=== PATIENT | male | born 1990 | race Caucasian/White ===

== ENCOUNTER 2022-10-17 08:20 | Emergency (ER) | payer BC ==
[2022-10-17] MEDS: Lactated Ringers 1,000 ML IV SCH ×2 (09:05→10:31)
[2022-10-17 09:13] LABS: HEMOGLOBIN A1C 6.4 %
[2022-10-17] MEDS ORDERED: Acetaminophen/oxyCODONE 325-5 MG Tab PO ONE (09:31)
[2022-10-17] MEDS ORDERED: LORazepam 2 MG/ML SDV IVPUSH ONE (10:21)
[2022-10-17] MEDS ORDERED: Dexamethasone 4 MG/ML SDV IVPUSH ONE (10:24)
[2022-10-17] MEDS ORDERED: Lactated Ringers 1,000 ML IV SCH (10:30)
[2022-10-17] MEDS ORDERED: Dextrose 5%-Lactated Ringers 1,000 ML IV SCH (10:30)
== END 2022-10-17 13:01 | disposition home or self-care (01) ==
LOC: JD.ED 08:20
DX: U07.1 COVID-19 (principal); E11.9 Type 2 diabetes mellitus without complications; I10 Essential (primary) hypertension; J45.909 Unspecified asthma, uncomplicated
CPT/HCPCS: 36415; 71045; 80053; 82009; 83036; 83735; 85025; 86140; 96361; 96374; 96375; 99283; A9270; J1100; J2060; J7120

== ENCOUNTER 2022-12-30 09:31 | Emergency (ER) | payer BC ==
[2022-12-30] MEDS ORDERED: Iopamidol 755 Mg/ML 100 ML Bottle IVPUSH ONE (10:10)
[2022-12-30] MEDS ORDERED: Sodium Chloride 0.9% 10 ML Syringe FLUSH ONE (10:10)
[2022-12-30] MEDS ORDERED: Sodium Chloride 0.9% 100 ML IV SCH (10:15)
[2022-12-30 11:49] LABS: CORONAVIRUS COVID-19 NAA NEGATIVE (NEGATIVE)
== END 2022-12-30 12:05 ==
LOC: JD.ED 09:31
DX: G81.94 Hemiplegia, unspecified affecting left nondominant side (principal); I10 Essential (primary) hypertension; J45.909 Unspecified asthma, uncomplicated; E11.9 Type 2 diabetes mellitus without complications; E66.9 Obesity, unspecified; Z68.43 Body mass index [BMI] 50.0-59.9, adult; Z91.018 Allergy to other foods; Z79.899 Other long term (current) drug therapy; Z79.84 Long term (current) use of oral hypoglycemic drugs; Z20.822 Contact with and (suspected) exposure to COVID-19
CPT/HCPCS: 0241U; 36415; 70450; 70496; 70498; 80053; 82947; 84484; 85025; 85379; 85610; 85730; 93005; 99285; J2997; J3490; Q9967

== ENCOUNTER 2023-04-04 11:59 | Emergency (ER) | payer BC, MEDICAID ==
[2023-04-04] MEDS ORDERED: Ondansetron 4 MG/2 ML SDV IVPUSH ONE (12:31)
[2023-04-04] MEDS ORDERED: Sodium Chloride 0.9% 10 ML Syringe FLUSH PRN (12:31)
[2023-04-04] MEDS ORDERED: Sodium Chloride 0.9% 1,000 ML IV SCH (12:45)
[2023-04-04 12:51] LABS: BASOPHILS ABSOLUTE AUTO 0.04 K/mm3 (0.01-0.08); BASOPHILS PERCENT AUTO 0.6 % (0.1-1.2); EOSINOPHILS PERCENT AUTO 1.5 (0.8-7.0); HEMATOCRIT 43.4 % (40.1-51.0); HEMOGLOBIN 14.4 gm/dl (13.7-17.5); IMMATURE GRAN ABSOLUTE AUTO 0.04 K/mm3 (0.00-0.10); IMMATURE GRAN PERCENT AUTO 0.6 % (<=1.0); LYMPHOCYTES PERCENT AUTO 29.3 % (21.8-53.1); MEAN CORPUSCULAR HEMOGLOBIN 25.9 pg (25.7-32.2); MEAN CORPUSCULAR HGB CONC 33.2 g/dl (32.2-35.5); MEAN CORPUSCULAR VOLUME 78.2 fl (79.0-92.2); MEAN PLATELET VOLUME 10.2 fl (9.4-12.3); MONOCYTES ABSOLUTE AUTO 0.66 K/mm3 (0.30-0.82); MONOCYTES PERCENT AUTO 10.2 % (5.3-12.2); NEUTROPHILS ABSOLUTE AUTO 3.75 K/mm3 (1.78-5.38); NEUTROPHILS PERCENT AUTO 57.8 % (34.0-67.9); PLATELET COUNT,PLT 276 K/mm3 (163-337); RED BLOOD CELL COUNT 5.55 M/mm3 (4.63-6.08); WHITE BLOOD CELL COUNT,WBC 6.49 K/mm3 (4.23-9.07)
[2023-04-04 13:19] LABS: A/G RATIO 1.1 (1-2); ALBUMIN 3.8 g/dl (3.4-5.0); ANION GAP 12.9 (5-15); BILIRUBIN TOTAL 0.6 mg/dL (0.2-1.0); BUN/CREATININE RATIO 15.7 (14-18); CALCIUM 9.6 mg/dL (8.5-10.1); CREATININE 0.7 mg/dL (0.7-1.3); EST CRCL DRUG DOSING (CG) 158.37 mL/min; MAGNESIUM 1.6 mg/dL (1.8-2.4); PHOSPHORUS 4.6 mg/dL (2.6-4.7); POTASSIUM,K 3.9 mEq/L (3.5-5.1); PROTEIN TOTAL,TP 7.3 g/dl (6.4-8.2)
[2023-04-04 13:29] LABS: HEMOGLOBIN A1C 12.2 %
[2023-04-04] MEDS ORDERED: Sodium Chloride 0.9% 1,000 ML IV ONE ×2 (14:17→16:00)
[2023-04-04] MEDS ORDERED: Ondansetron 4 MG/2 ML SDV ONE (14:42)
[2023-04-04 16:27] LABS: APPEARANCE,URINE CLEAR (Clear); BILIRUBIN,URINE NEGATIVE (Negative); COLOR,URINE YELLOW (Yellow); GLUCOSE,URINE 2+ (Negative); KETONES,URINE 3+ (Negative); LEUKOCYTE ESTERASE,URINE NEGATIVE (Negative); NITRITE,URINE POSITIVE (Negative); OCCULT BLOOD,URINE NEGATIVE (Negative); PH,URINE 5.5 (5.0-8.0); PROTEIN,URINE TRACE (Negative); UROBILINOGEN,URINE 0.2 (0.2-1.0)
[2023-04-04 16:38] LABS: RBC,URINE 0-5 /hpf (0-5); SQUAMOUS EPITHELIAL CELLS,UR 0-5 /hpf (0-5); WBC,URINE 0-5 /hpf (0-5)
[2023-04-04 16:39] LABS: BACTERIA,URINE MANY /hpf (FEW); MUCUS,URINE NOT SEEN /hpf (FEW)
[2023-04-04] MEDS ORDERED: cefTRIAXone 2 GM in Sodium Chloride 0.9% 100 ML IV ONE (17:33)
== END 2023-04-04 18:49 | disposition home or self-care (01) ==
LOC: JD.ED 11:59
DX: E11.65 Type 2 diabetes mellitus with hyperglycemia (principal); N30.00 Acute cystitis without hematuria; E78.00 Pure hypercholesterolemia, unspecified; I10 Essential (primary) hypertension; J45.909 Unspecified asthma, uncomplicated; E66.9 Obesity, unspecified; Z68.43 Body mass index [BMI] 50.0-59.9, adult; Z86.16 Personal history of COVID-19; Z91.018 Allergy to other foods; Z79.84 Long term (current) use of oral hypoglycemic drugs; Z79.899 Other long term (current) drug therapy
CPT/HCPCS: 36415; 80053; 81001; 82009; 82800; 82947; 83036; 83735; 84100; 85025; 87086; 87088; 87186; 96361; 96374; 96375; 99283; J0696; J2405; J3490; J7030; 99284

== ENCOUNTER 2023-05-18 14:24 | Emergency (ER) | payer BC, MEDICAID ==
[2023-05-18] MEDS ORDERED: Ketorolac 60 MG/2 ML SDV IM ONE (16:13)
[2023-05-18] MEDS ORDERED: Metoclopramide 10 MG/2 ML SDV IM ONE (16:13)
[2023-05-18] MEDS ORDERED: diphenhydrAMINE 50 MG/ML SDV IM ONE (16:13)
== END 2023-05-18 17:54 | disposition home or self-care (01) ==
LOC: JD.ED 14:24
DX: G93.0 Cerebral cysts (principal); J45.909 Unspecified asthma, uncomplicated; E78.00 Pure hypercholesterolemia, unspecified; I10 Essential (primary) hypertension; E11.9 Type 2 diabetes mellitus without complications; E66.9 Obesity, unspecified; Z91.018 Allergy to other foods; Z79.899 Other long term (current) drug therapy; Z79.84 Long term (current) use of oral hypoglycemic drugs
CPT/HCPCS: 70450; 96372; 99284; J1200; J1885; J2765; 99283

== ENCOUNTER 2024-02-23 07:13 | Inpatient (IN) | payer MEDICAID ==
[2024-02-23 08:22] LABS: BASOPHILS ABSOLUTE AUTO 0.1 K/mm3 (0.0-0.2); BASOPHILS PERCENT AUTO 0.8 % (0.0-1.0); EOSINOPHILS ABSOLUTE AUTO 0.1 K/mm3 (0.0-0.4); EOSINOPHILS PERCENT AUTO 0.9 % (0.0-6.0); HEMATOCRIT 44.2 % (42.0-52.0); HEMOGLOBIN 14.7 gm/dl (14.0-18.0); IMMATURE GRAN ABSOLUTE AUTO 0.12 K/mm3 (0.00-0.05); IMMATURE GRAN PERCENT AUTO 1.1 % (0.0-0.4); LYMPHOCYTES ABSOLUTE AUTO 2.2 K/mm3 (1.0-4.8); LYMPHOCYTES PERCENT AUTO 19.2 % (24.0-44.0); MEAN CORPUSCULAR HEMOGLOBIN 25.9 pg (28.0-32.0); MEAN CORPUSCULAR HGB CONC 33.3 g/dl (32.0-36.0); MEAN PLATELET VOLUME 9.7 fl (9.4-12.4); MONOCYTES ABSOLUTE AUTO 0.9 K/mm3 (0.0-0.8); MONOCYTES PERCENT AUTO 7.8 % (0.0-8.0); NEUTROPHILS PERCENT AUTO 70.2 % (41.0-71.0); PLATELET COUNT,PLT 309 K/mm3 (150-400); RED BLOOD CELL COUNT 5.67 M/mm3 (4.52-5.90); WHITE BLOOD CELL COUNT,WBC 11.34 K/mm3 (3.9-11.3)
[2024-02-23] MEDS ORDERED: Insulin Regular, Human 100 Units/ML 3 ML Vial IV ONE (08:27)
[2024-02-23] MEDS: cefTRIAXone 1 GM in Sodium Chloride 0.9% 100 ML IV ONE (08:38)
[2024-02-23] MEDS: Sodium Chloride 0.9% 1,000 ML IV ONE ×2 (08:38→14:21)
[2024-02-23] MEDS: Insulin Regular, Human 100 Units/ML 3 ML Vial IVPUSH ONE (08:40)
[2024-02-23 08:44] LABS: PROTHROMBIN TIME 9.9 SECONDS (9.7-12.0)
[2024-02-23 08:45] LABS: INR < 0.93
[2024-02-23 08:45] LABS: CORONAVIRUS COVID-19 NAA NEGATIVE (NEGATIVE); INFLUENZA A NAA NEGATIVE (NEGATIVE); RESPIRATORY SYNCYTIAL VIR NAA NEGATIVE (NEGATIVE)
[2024-02-23 08:54] LABS: ALBUMIN 3.8 g/dl (3.4-5.0); ANION GAP 12.1 (5-15); BILIRUBIN TOTAL 0.7 mg/dL (0.2-1.0); C-REACTIVE PROTEIN 2.78 mg/dL (<0.30); CALCIUM 9.4 mg/dL (8.5-10.1); CREATININE 0.9 mg/dL (0.7-1.3); EST CRCL DRUG DOSING (CG) 122.01 mL/min; POTASSIUM,K 4.1 mEq/L (3.5-5.1); PROTEIN TOTAL,TP 7.7 g/dl (6.4-8.2)
[2024-02-23 08:57] LABS: LACTIC ACID 1.6 mmol/L (0.4-2.0)
[2024-02-23] MEDS ORDERED: VANCOmycin 1.5 GM/300 ML 1.5 GM in Premix Bag 1 BAG IV ONE (10:06)
[2024-02-23] MEDS ORDERED: Sodium Chloride 0.9% 1,000 ML IV ONE (10:11)
[2024-02-23] MEDS: Iopamidol 755 Mg/ML 100 ML Bottle IVPUSH ONE (10:24)
[2024-02-23] MEDS: Sodium Chloride 0.9% 10 ML Syringe FLUSH ONE (10:24)
[2024-02-23] MEDS ORDERED: Albuterol 6.7 GM Inhaler INH PRN (12:32)
[2024-02-23] MEDS ORDERED: Albuterol 0.083% 2.5 MG/3 ML Neb Soln NEB PRN (12:32)
[2024-02-23] MEDS ORDERED: Docusate Sodium 100 MG Cap PO PRN (12:32)
[2024-02-23] MEDS ORDERED: Ondansetron 4 MG Tab.DIS PO PRN (12:32)
[2024-02-23] MEDS ORDERED: Ondansetron 4 MG/2 ML SDV IV PRN (12:32)
[2024-02-23 13:10] LABS: HEMOGLOBIN A1C 12.9 %
[2024-02-23] MEDS: VANCOmycin 1.5 GM/300 ML 1.5 GM in Premix Bag 1 BAG IV ONE (14:21)
[2024-02-23] MEDS: Enoxaparin 40 MG/0.4 ML Syringe SUBCUT SCH (14:22)
[2024-02-23] MEDS: Insulin Glargine,Human Rec. Analog 100 Units/ML 3 ML Pen SUBCUT ONE (15:17)
[2024-02-23] MEDS: Insulin Lispro 100 Unit/ML 3 ML KwikPen SUBCUT SCH (18:04)
[2024-02-23] MEDS: Benzocaine/Cetylpyridinium/Menthol Lozenge MUCMEM PRN (18:04)
[2024-02-23] MEDS: oxyCODONE 5 MG Tab PO PRN (21:13)
[2024-02-23] MEDS: Metoprolol Succinate 25 MG Tab.ER PO SCH (21:15)
[2024-02-23] MEDS: Topiramate 25 MG Tab PO SCH (21:15)
[2024-02-24] MEDS: VANCOmycin 1.5 GM/300 ML 1.5 GM in Premix Bag 1 BAG IV SCH (02:31)
[2024-02-24] MEDS: Acetaminophen 325 MG Tab PO PRN (02:35)
[2024-02-24 05:51] LABS: A/G RATIO 0.9 (1-2); ALBUMIN 3.2 g/dl (3.4-5.0); ANION GAP 9.6 (5-15); BILIRUBIN TOTAL 0.7 mg/dL (0.2-1.0); BUN/CREATININE RATIO 4.3 (14-18); C-REACTIVE PROTEIN 2.97 mg/dL (<0.30); CALCIUM 8.8 mg/dL (8.5-10.1); CREATININE 0.7 mg/dL (0.7-1.3); EST CRCL DRUG DOSING (CG) 156.88 mL/min; MAGNESIUM 1.7 mg/dL (1.8-2.4); POTASSIUM,K 3.6 mEq/L (3.5-5.1); PROTEIN TOTAL,TP 6.7 g/dl (6.4-8.2)
[2024-02-24 05:56] LABS: BASOPHILS ABSOLUTE AUTO 0.1 K/mm3 (0.0-0.2); BASOPHILS PERCENT AUTO 0.9 % (0.0-1.0); EOSINOPHILS ABSOLUTE AUTO 0.2 K/mm3 (0.0-0.4); EOSINOPHILS PERCENT AUTO 2.6 % (0.0-6.0); HEMATOCRIT 41.7 % (42.0-52.0); HEMOGLOBIN 13.7 gm/dl (14.0-18.0); IMMATURE GRAN ABSOLUTE AUTO 0.08 K/mm3 (0.00-0.05); IMMATURE GRAN PERCENT AUTO 1.1 % (0.0-0.4); LYMPHOCYTES ABSOLUTE AUTO 2.4 K/mm3 (1.0-4.8); LYMPHOCYTES PERCENT AUTO 34.3 % (24.0-44.0); MEAN CORPUSCULAR HEMOGLOBIN 25.7 pg (28.0-32.0); MEAN CORPUSCULAR HGB CONC 32.9 g/dl (32.0-36.0); MEAN CORPUSCULAR VOLUME 78.1 fl (83.0-99.0); MEAN PLATELET VOLUME 10.1 fl (9.4-12.4); MONOCYTES ABSOLUTE AUTO 0.6 K/mm3 (0.0-0.8); MONOCYTES PERCENT AUTO 8.4 % (0.0-8.0); NEUTROPHILS ABSOLUTE AUTO 3.7 K/mm3 (1.8-7.7); NEUTROPHILS PERCENT AUTO 52.7 % (41.0-71.0); PLATELET COUNT,PLT 276 K/mm3 (150-400); RED BLOOD CELL COUNT 5.34 M/mm3 (4.52-5.90); WHITE BLOOD CELL COUNT,WBC 7.03 K/mm3 (3.9-11.3)
[2024-02-24] MEDS: Insulin Glargine,Human Rec. Analog 100 Units/ML 3 ML Pen SUBCUT SCH (08:04)
[2024-02-24] MEDS: cefTRIAXone 2 GM in Sodium Chloride 0.9% 100 ML IV SCH (08:05)
[2024-02-24] MEDS ORDERED: Benztropine 1 MG Tab PO SCH (09:00)
[2024-02-24] MEDS ORDERED: Lisinopril 10 MG Tab PO SCH (09:00)
[2024-02-24] MEDS ORDERED: Insulin Glargine,Human Rec. Analog 100 Units/ML 3 ML Pen SUBCUT SCH (09:00)
[2024-02-24] MEDS ORDERED: Rosuvastatin 10 MG Tab PO SCH (09:00)
[2024-02-24] MEDS: Magnesium Sulfate/Water 2 GM in Premix Bag 1 BAG IV ONE (09:16)
[2024-02-24] MEDS ORDERED: Acetaminophen/Butalbital/Caffeine 325-50-40 MG Tab PO PRN (12:05)
[2024-02-24] MEDS: VANCOmycin 1.75 GM/350 ML 1.75 GM in Premix Bag 1 BAG IV SCH (12:32)
[2024-02-24] MEDS: Lisinopril 10 MG Tab PO SCH (12:35)
[2024-02-24] MEDS: Topiramate 25 MG Tab PO SCH (12:35)
[2024-02-24] MEDS: Rosuvastatin 10 MG Tab PO SCH (12:36)
[2024-02-24] MEDS: Metoprolol Tartrate 25 MG Tab PO SCH (12:36)
[2024-02-24] MEDS: Acetaminophen/Butalbital/Caffeine 325-50-40 MG Tab PO ONE (12:38)
[2024-02-24] MEDS: ARIPiprazole 10 MG Tab PO SCH (12:38)
[2024-02-24] MEDS: Benztropine 1 MG Tab PO SCH (12:39)
[2024-02-24] MEDS: Formoterol/Mometasone 100-5 MCG 8.8 GM Inhaler IH SCH (13:17)
[2024-02-24] MEDS: Insulin Glargine,Human Rec. Analog 100 Units/ML 3 ML Pen SUBCUT ONE (20:31)
[2024-02-24] MEDS ORDERED: FLUTICASONE PROPION INH SCH (21:00)
[2024-02-24] MEDS ORDERED: SALMETEROL INH SCH (21:00)
[2024-02-24] MEDS ORDERED: [UNRECOGNIZED DRUG - OTHER] INH SCH (21:00)
[2024-02-24] MEDS ORDERED: Metoprolol Tartrate 25 MG Tab PO SCH (21:00)
[2024-02-24] MEDS ORDERED: Topiramate 25 MG Tab PO SCH (21:00)
[2024-02-25 05:40] LABS: A/G RATIO 0.9 (1-2); ALBUMIN 3.1 g/dl (3.4-5.0); ANION GAP 11.6 (5-15); BILIRUBIN TOTAL 0.5 mg/dL (0.2-1.0); BUN/CREATININE RATIO 7.1 (14-18); C-REACTIVE PROTEIN 1.81 mg/dL (<0.30); CALCIUM 8.8 mg/dL (8.5-10.1); CREATININE 0.7 mg/dL (0.7-1.3); EST CRCL DRUG DOSING (CG) 156.88 mL/min; MAGNESIUM 2.1 mg/dL (1.8-2.4); POTASSIUM,K 3.6 mEq/L (3.5-5.1); PROTEIN TOTAL,TP 6.6 g/dl (6.4-8.2)
[2024-02-25 06:04] LABS: BASOPHILS ABSOLUTE AUTO 0.1 K/mm3 (0.0-0.2); BASOPHILS PERCENT AUTO 1.3 % (0.0-1.0); EOSINOPHILS ABSOLUTE AUTO 0.2 K/mm3 (0.0-0.4); EOSINOPHILS PERCENT AUTO 2.7 % (0.0-6.0); HEMATOCRIT 41.8 % (42.0-52.0); HEMOGLOBIN 13.7 gm/dl (14.0-18.0); IMMATURE GRAN ABSOLUTE AUTO 0.11 K/mm3 (0.00-0.05); IMMATURE GRAN PERCENT AUTO 1.4 % (0.0-0.4); LYMPHOCYTES ABSOLUTE AUTO 2.3 K/mm3 (1.0-4.8); LYMPHOCYTES PERCENT AUTO 29.7 % (24.0-44.0); MEAN CORPUSCULAR HEMOGLOBIN 25.5 pg (28.0-32.0); MEAN CORPUSCULAR HGB CONC 32.8 g/dl (32.0-36.0); MEAN CORPUSCULAR VOLUME 77.7 fl (83.0-99.0); MEAN PLATELET VOLUME 10.1 fl (9.4-12.4); MONOCYTES ABSOLUTE AUTO 0.7 K/mm3 (0.0-0.8); MONOCYTES PERCENT AUTO 8.7 % (0.0-8.0); NEUTROPHILS ABSOLUTE AUTO 4.4 K/mm3 (1.8-7.7); NEUTROPHILS PERCENT AUTO 56.2 % (41.0-71.0); PLATELET COUNT,PLT 290 K/mm3 (150-400); RED BLOOD CELL COUNT 5.38 M/mm3 (4.52-5.90); WHITE BLOOD CELL COUNT,WBC 7.78 K/mm3 (3.9-11.3)
[2024-02-25] MEDS: Insulin Glargine,Human Rec. Analog 100 Units/ML 3 ML Pen SUBCUT SCH (08:12)
[2024-02-25] MEDS ORDERED: Lisinopril 10 MG Tab PO SCH (09:00)
[2024-02-25] MEDS ORDERED: Rosuvastatin 10 MG Tab PO SCH (09:00)
[2024-02-25] MEDS ORDERED: Benztropine 1 MG Tab PO SCH (09:00)
[2024-02-25] MEDS ORDERED: [UNRECOGNIZED DRUG - OTHER] TOP SCH (11:30)
[2024-02-25] MEDS ORDERED: Insulin Glargine,Human Rec. Analog 100 Units/ML 3 ML Pen SUBCUT ONE (18:20)
== END 2024-02-25 15:30 | disposition home or self-care (01) | DRG 603 ==
LOC: JD.ED 07:13 → JD.MS 11:46
PROVIDERS: ADMIT Internal Medicine; ATTEND Internal Medicine
DX: L02.31 Cutaneous abscess of buttock (principal); L02.11 Cutaneous abscess of neck; Z68.42 Body mass index [BMI] 45.0-49.9, adult; L02.01 Cutaneous abscess of face; L03.221 Cellulitis of neck; L03.211 Cellulitis of face; L03.317 Cellulitis of buttock; E11.620 Type 2 diabetes mellitus with diabetic dermatitis; H54.7 Unspecified visual loss; E78.00 Pure hypercholesterolemia, unspecified; I10 Essential (primary) hypertension; G43.909 Migraine, unspecified, not intractable, without status migrainosus; F41.9 Anxiety disorder, unspecified; F43.10 Post-traumatic stress disorder, unspecified; N49.9 Inflammatory disorder of unspecified male genital organ; L98.499 Non-pressure chronic ulcer of skin of other sites with unspecified severity; E66.01 Morbid (severe) obesity due to excess calories; F20.9 Schizophrenia, unspecified; E78.5 Hyperlipidemia, unspecified; F32.89 Other specified depressive episodes; R26.2 Difficulty in walking, not elsewhere classified; E11.65 Type 2 diabetes mellitus with hyperglycemia; B95.0 Streptococcus, group A, as the cause of diseases classified elsewhere; J02.9 Acute pharyngitis, unspecified; J45.20 Mild intermittent asthma, uncomplicated; L21.9 Seborrheic dermatitis, unspecified; E83.42 Hypomagnesemia; Z91.018 Allergy to other foods; Z79.84 Long term (current) use of oral hypoglycemic drugs; Z79.899 Other long term (current) drug therapy; Z87.81 Personal history of (healed) traumatic fracture; Z87.440 Personal history of urinary (tract) infections; Z86.16 Personal history of COVID-19; Z90.49 Acquired absence of other specified parts of digestive tract
CPT/HCPCS: 0241U; 36415; 70491; 70491-26; 80053; 80202; 82947; 83036; 83605; 83735; 85025; 85610; 85652; 85730; 86140; 87040; 87070; 87075; 87077; 87186; 87205; 87651-QW; 94640; 94760; 94761; 96361; 96365; 97110-GP; 97161-GP; 97530-GP; 97597-GP; 99223; 99233; 99239; 99285; 99285-25; A9270-GY; J0696; J1650; J1815; J1815-GY; J3370; J3475; J3490; J7030; Q9967

== ENCOUNTER 2024-10-26 22:17 | Emergency (ER) | payer MEDICAID | END 2024-10-27 00:52 | disposition home or self-care (01) | LOC: JD.ED 22:17 | DX: J06.9 Acute upper respiratory infection, unspecified (principal); B34.9 Viral infection, unspecified; I10 Essential (primary) hypertension; E11.9 Type 2 diabetes mellitus without complications; E66.9 Obesity, unspecified; Z86.16 Personal history of COVID-19; Z90.49 Acquired absence of other specified parts of digestive tract; Z91.018 Allergy to other foods; Z68.43 Body mass index [BMI] 50.0-59.9, adult | CPT/HCPCS: 71045; 71045-26; 87428-QW; 99284 ==

== ENCOUNTER 2024-10-31 15:52 | Inpatient (IN) | payer BC, MEDICAID ==
[2024-10-31 18:53] LABS: BASE EXCESS ARTERIAL -6.7 (-2-2.0); BICARBONATE,ARTERIAL 17.1 meq/L (22.0-26.0); O2 SATURATION ARTERIAL 93.8 % (96.0-97.0); PCO2 ARTERIAL 30.6 mmHg (35.0-45.0)
[2024-10-31] MEDS: Albuterol/Ipratropium 3.0-0.5 MG/3 ML Neb Soln NEB ONE (18:57)
[2024-10-31 18:59] LABS: BASOPHILS ABSOLUTE AUTO 0.1 K/mm3 (0.0-0.2); BASOPHILS PERCENT AUTO 0.4 % (0.0-1.0); EOSINOPHILS PERCENT AUTO 0.2 % (0.0-6.0); HEMATOCRIT 41.7 % (42.0-52.0); HEMOGLOBIN 13.5 gm/dl (14.0-18.0); IMMATURE GRAN ABSOLUTE AUTO 0.77 K/mm3 (0.00-0.05); IMMATURE GRAN PERCENT AUTO 4.3 % (0.0-0.4); LYMPHOCYTES ABSOLUTE AUTO 1.7 K/mm3 (1.0-4.8); LYMPHOCYTES PERCENT AUTO 9.4 % (24.0-44.0); MEAN CORPUSCULAR HEMOGLOBIN 25.7 pg (28.0-32.0); MEAN CORPUSCULAR HGB CONC 32.4 g/dl (32.0-36.0); MEAN CORPUSCULAR VOLUME 79.3 fl (83.0-99.0); MEAN PLATELET VOLUME 9.4 fl (9.4-12.4); MONOCYTES ABSOLUTE AUTO 1.5 K/mm3 (0.0-0.8); MONOCYTES PERCENT AUTO 8.2 % (0.0-8.0); NEUTROPHILS PERCENT AUTO 77.5 % (41.0-71.0); PLATELET COUNT,PLT 371 K/mm3 (150-400); RED BLOOD CELL COUNT 5.26 M/mm3 (4.52-5.90)
[2024-10-31] MEDS: Ketorolac 15 MG/ML SDV IVPUSH ONE (18:59)
[2024-10-31] MEDS: Sodium Chloride 0.9% 10 ML Syringe FLUSH PRN (19:00)
[2024-10-31] MEDS: methylPREDNISolone Sodium Succinate 125 MG/2 ML SDV IVPUSH ONE (19:00)
[2024-10-31] MEDS: Iopamidol 612 MG/ML 100 ML Bottle IVPUSH ONE (19:31)
[2024-10-31] MEDS: Iopamidol 755 Mg/ML 100 ML Bottle IVPUSH ONE (19:32)
[2024-10-31] MEDS: Sodium Chloride 0.9% 100 ML IV SCH (19:32)
[2024-10-31 19:34] LABS: LACTIC ACID 1.6 mmol/L (0.4-2.0)
[2024-10-31 19:37] LABS: A/G RATIO 0.5 (1-2); ALBUMIN 2.7 g/dl (3.4-5.0); ANION GAP 18.2 (5-15); BILIRUBIN TOTAL 0.5 mg/dL (0.2-1.0); BUN/CREATININE RATIO 11.1 (14-18); CALCIUM 9.6 mg/dL (8.5-10.1); CREATININE 0.9 mg/dL (0.7-1.3); EST CRCL DRUG DOSING (CG) 109.78 mL/min; POTASSIUM,K 4.2 mEq/L (3.5-5.1); PROTEIN TOTAL,TP 8.1 g/dl (6.4-8.2)
[2024-10-31] MEDS: cefTRIAXone 2 GM Vial IVPUSH ONE (20:18)
[2024-10-31] MEDS: Azithromycin 500 MG in Sodium Chloride 0.9% 250 ML IV ONE (20:36)
[2024-10-31] MEDS: Sodium Chloride 0.9% 1,000 ML IV SCH (20:42)
[2024-10-31] MEDS: guaiFENesin/Dextromethorphan 100-10 MG/5 ML Soln 5 ML Cup PO PRN (22:46)
[2024-10-31] MEDS: Insulin Lispro 100 Unit/ML 3 ML KwikPen SUBCUT SCH (23:30)
[2024-11-01] MEDS: Formoterol/Mometasone 100-5 MCG 8.8 GM Inhaler INH SCH (06:44)
[2024-11-01] MEDS: Albuterol 0.083% 2.5 MG/3 ML Neb Soln NEB PRN (08:00)
[2024-11-01] MEDS: Lisinopril 10 MG Tab PO SCH (08:22)
[2024-11-01] MEDS: Enoxaparin 40 MG/0.4 ML Syringe SUBCUT SCH (08:22)
[2024-11-01] MEDS: Rosuvastatin 10 MG Tab PO SCH (08:23)
[2024-11-01] MEDS: Gabapentin 600 MG Tab PO SCH (08:23)
[2024-11-01] MEDS: Topiramate 25 MG Tab PO SCH (08:31)
[2024-11-01] MEDS: ARIPiprazole 10 MG Tab PO SCH (08:31)
[2024-11-01] MEDS: Metoprolol Tartrate 25 MG Tab PO SCH (08:32)
[2024-11-01] MEDS: Insulin Glargine,Human Rec. Analog 100 Units/ML 3 ML Pen SUBCUT SCH (08:32)
[2024-11-01] MEDS: Albuterol/Ipratropium 3.0-0.5 MG/3 ML Neb Soln NEB SCH ×2 (10:36→14:20)
[2024-11-01] MEDS: Acetaminophen 325 MG Tab PO PRN (12:00)
[2024-11-01 17:51] LABS: APPEARANCE,URINE CLEAR (Clear); BILIRUBIN,URINE 1+ (Negative); COLOR,URINE YELLOW (Yellow); GLUCOSE,URINE 2+ (Negative); KETONES,URINE 4+ (Negative); LEUKOCYTE ESTERASE,URINE NEGATIVE (Negative); NITRITE,URINE NEGATIVE (Negative); OCCULT BLOOD,URINE 1+ (Negative); PROTEIN,URINE 3+ (Negative); UROBILINOGEN,URINE 0.2 (0.2-1.0)
[2024-11-01 18:58] LABS: BACTERIA,URINE FEW /hpf (FEW); HYALINE CASTS,URINE 0-5 /lpf (0-5); MUCUS,URINE MODERATE /hpf (FEW); SQUAMOUS EPITHELIAL CELLS,UR 0-5 /hpf (0-5); WBC,URINE 0-5 /hpf (0-5)
[2024-11-01] MEDS: cefTRIAXone 1 GM Vial IVPUSH SCH (20:27)
[2024-11-01] MEDS: Doxycycline 100 MG in Sodium Chloride 0.9% 100 ML IV SCH (20:27)
[2024-11-01] MEDS ORDERED: Non-Formulary Medication 1 Each (Fluticasone Propion/Salmeterol [Fluticasone-Salmeterol 11 IH SCH (21:00)
[2024-11-02 04:33] LABS: BASOPHILS ABSOLUTE AUTO 0.1 K/mm3 (0.0-0.2); BASOPHILS PERCENT AUTO 0.6 % (0.0-1.0); EOSINOPHILS PERCENT AUTO 0.1 % (0.0-6.0); HEMATOCRIT 40.1 % (42.0-52.0); HEMOGLOBIN 12.6 gm/dl (14.0-18.0); IMMATURE GRAN ABSOLUTE AUTO 1.66 K/mm3 (0.00-0.05); IMMATURE GRAN PERCENT AUTO 8.9 % (0.0-0.4); LYMPHOCYTES ABSOLUTE AUTO 1.7 K/mm3 (1.0-4.8); MEAN CORPUSCULAR HEMOGLOBIN 25.4 pg (28.0-32.0); MEAN CORPUSCULAR HGB CONC 31.4 g/dl (32.0-36.0); MEAN CORPUSCULAR VOLUME 80.7 fl (83.0-99.0); MEAN PLATELET VOLUME 9.1 fl (9.4-12.4); MONOCYTES ABSOLUTE AUTO 1.6 K/mm3 (0.0-0.8); MONOCYTES PERCENT AUTO 8.7 % (0.0-8.0); NEUTROPHILS ABSOLUTE AUTO 13.5 K/mm3 (1.8-7.7); NEUTROPHILS PERCENT AUTO 72.7 % (41.0-71.0); PLATELET COUNT,PLT 403 K/mm3 (150-400); RED BLOOD CELL COUNT 4.97 M/mm3 (4.52-5.90); WHITE BLOOD CELL COUNT,WBC 18.63 K/mm3 (3.9-11.3)
[2024-11-02 05:11] LABS: HEMOGLOBIN A1C 13.1 %
[2024-11-02 05:24] LABS: A/G RATIO 0.4 (1-2); ALBUMIN 2.2 g/dl (3.4-5.0); ANION GAP 19.9 (5-15); BILIRUBIN TOTAL 0.4 mg/dL (0.2-1.0); C-REACTIVE PROTEIN 19.88 mg/dL (<0.30); CALCIUM 8.9 mg/dL (8.5-10.1); CREATININE 0.8 mg/dL (0.7-1.3); EST CRCL DRUG DOSING (CG) 123.5 mL/min; POTASSIUM,K 3.9 mEq/L (3.5-5.1); PROTEIN TOTAL,TP 7.5 g/dl (6.4-8.2)
[2024-11-02 06:08] LABS: SLIDE REVIEW ABNORMAL SMEAR
[2024-11-02] MEDS ORDERED: 50% Dextrose in Water 50 ML Syringe IVPUSH PRN (08:02)
[2024-11-02] MEDS: Acetaminophen 325 MG Tab PO SCH (10:29)
[2024-11-02] MEDS: Lisinopril 10 MG Tab PO ONE (10:30)
[2024-11-02] MEDS: Cyclobenzaprine 10 MG Tab PO ONE (11:20)
[2024-11-02] MEDS: Insulin Lispro 100 Unit/ML 3 ML KwikPen SUBCUT SCH (11:23)
[2024-11-02] MEDS: Cyclobenzaprine 10 MG Tab PO SCH (15:08)
[2024-11-02] MEDS: Diclofenac Sodium 1% Gel 100 GM Tube TOP PRN (15:20)
[2024-11-02] MEDS ORDERED: oxyCODONE 5 MG Tab PO PRN (15:33)
[2024-11-02] MEDS: amLODIPine 5 MG Tab PO SCH (15:50)
[2024-11-02] MEDS: Metoprolol Tartrate 50 MG Tab PO SCH (20:08)
[2024-11-03 04:16] LABS: BASOPHILS PERCENT AUTO 0.1 % (0.0-1.0); EOSINOPHILS PERCENT AUTO 0.2 % (0.0-6.0); HEMATOCRIT 40.3 % (42.0-52.0); HEMOGLOBIN 12.9 gm/dl (14.0-18.0); IMMATURE GRAN ABSOLUTE AUTO 1.78 K/mm3 (0.00-0.05); IMMATURE GRAN PERCENT AUTO 10.5 % (0.0-0.4); LYMPHOCYTES ABSOLUTE AUTO 2.1 K/mm3 (1.0-4.8); LYMPHOCYTES PERCENT AUTO 12.5 % (24.0-44.0); MEAN CORPUSCULAR HEMOGLOBIN 25.5 pg (28.0-32.0); MEAN CORPUSCULAR VOLUME 79.6 fl (83.0-99.0); MEAN PLATELET VOLUME 8.9 fl (9.4-12.4); MONOCYTES ABSOLUTE AUTO 1.7 K/mm3 (0.0-0.8); NEUTROPHILS ABSOLUTE AUTO 11.4 K/mm3 (1.8-7.7); NEUTROPHILS PERCENT AUTO 66.7 % (41.0-71.0); PLATELET COUNT,PLT 388 K/mm3 (150-400); RED BLOOD CELL COUNT 5.06 M/mm3 (4.52-5.90); WHITE BLOOD CELL COUNT,WBC 17.03 K/mm3 (3.9-11.3)
[2024-11-03 04:40] LABS: A/G RATIO 0.4 (1-2); ALBUMIN 2.1 g/dl (3.4-5.0); ANION GAP 17.8 (5-15); BILIRUBIN TOTAL 0.5 mg/dL (0.2-1.0); BUN/CREATININE RATIO 13.8 (14-18); C-REACTIVE PROTEIN 21.08 mg/dL (<0.30); CALCIUM 9.1 mg/dL (8.5-10.1); CREATININE 0.8 mg/dL (0.7-1.3); EST CRCL DRUG DOSING (CG) 123.5 mL/min; POTASSIUM,K 3.8 mEq/L (3.5-5.1); PROTEIN TOTAL,TP 7.6 g/dl (6.4-8.2)
[2024-11-03 04:43] LABS: SLIDE REVIEW ABNORMAL SMEAR
[2024-11-03] MEDS: VANCOmycin 1.75 GM/350 ML 1.75 GM in Premix Bag 1 BAG IV ONE (08:01)
[2024-11-03] MEDS: Lisinopril 20 MG Tab PO SCH (08:10)
[2024-11-03] MEDS: Insulin Glargine,Human Rec. Analog 100 Units/ML 3 ML Pen SUBCUT SCH (08:13)
[2024-11-03] MEDS: VANCOmycin 1.5 GM/300 ML 1.5 GM in Premix Bag 1 BAG IV SCH (16:34)
[2024-11-03] MEDS: Iopamidol 755 Mg/ML 100 ML Bottle IVPUSH ONE (19:50)
[2024-11-03] MEDS: Sodium Chloride 0.9% 100 ML IV SCH (19:51)
[2024-11-03] MEDS: Melatonin 3 MG Tab PO SCH (20:55)
[2024-11-04] MEDS: metroNIDAZOLE/Normal Saline 500 MG in Premix Bag 1 BAG IV SCH (00:01)
[2024-11-04 08:18] LABS: BASOPHILS ABSOLUTE AUTO 0.1 K/mm3 (0.0-0.2); BASOPHILS PERCENT AUTO 0.8 % (0.0-1.0); EOSINOPHILS PERCENT AUTO 0.2 % (0.0-6.0); HEMATOCRIT 37.7 % (42.0-52.0); HEMOGLOBIN 12.2 gm/dl (14.0-18.0); IMMATURE GRAN ABSOLUTE AUTO 1.91 K/mm3 (0.00-0.05); IMMATURE GRAN PERCENT AUTO 10.4 % (0.0-0.4); LYMPHOCYTES ABSOLUTE AUTO 1.9 K/mm3 (1.0-4.8); LYMPHOCYTES PERCENT AUTO 10.3 % (24.0-44.0); MEAN CORPUSCULAR HEMOGLOBIN 25.5 pg (28.0-32.0); MEAN CORPUSCULAR HGB CONC 32.4 g/dl (32.0-36.0); MEAN CORPUSCULAR VOLUME 78.7 fl (83.0-99.0); MONOCYTES ABSOLUTE AUTO 1.7 K/mm3 (0.0-0.8); MONOCYTES PERCENT AUTO 9.4 % (0.0-8.0); NEUTROPHILS ABSOLUTE AUTO 12.6 K/mm3 (1.8-7.7); NEUTROPHILS PERCENT AUTO 68.9 % (41.0-71.0); PLATELET COUNT,PLT 360 K/mm3 (150-400); RED BLOOD CELL COUNT 4.79 M/mm3 (4.52-5.90)
[2024-11-04 08:39] LABS: SLIDE REVIEW ABNORMAL SMEAR
[2024-11-04 08:45] LABS: A/G RATIO 0.4 (1-2); ALBUMIN 1.9 g/dl (3.4-5.0); ANION GAP 16.7 (5-15); BILIRUBIN TOTAL 0.5 mg/dL (0.2-1.0); BUN/CREATININE RATIO 15.7 (14-18); CALCIUM 8.9 mg/dL (8.5-10.1); CREATININE 0.7 mg/dL (0.7-1.3); EST CRCL DRUG DOSING (CG) 141.14 mL/min; POTASSIUM,K 3.7 mEq/L (3.5-5.1); PROTEIN TOTAL,TP 7.2 g/dl (6.4-8.2)
== END 2024-11-04 10:56 | DRG 193 ==
LOC: JD.ED 15:52 → JD.MS 20:17
PROVIDERS: ADMIT Family Medicine; ATTEND Family Medicine
PROC: 4A033R1 Measurement of Arterial Saturation, Peripheral, Percutaneous Approach (ICD-10-PCS; principal; 2024-10-31)
PROC: 3E03329 Introduction of Other Anti-infective into Peripheral Vein, Percutaneous Approach (ICD-10-PCS; principal; 2024-10-31)
DX: J18.9 Pneumonia, unspecified organism (principal); A41.9 Sepsis, unspecified organism; J96.01 Acute respiratory failure with hypoxia; J45.901 Unspecified asthma with (acute) exacerbation; H54.7 Unspecified visual loss; E78.00 Pure hypercholesterolemia, unspecified; I10 Essential (primary) hypertension; G43.909 Migraine, unspecified, not intractable, without status migrainosus; F41.9 Anxiety disorder, unspecified; F32.A Depression, unspecified; F20.9 Schizophrenia, unspecified; E66.9 Obesity, unspecified; D64.9 Anemia, unspecified; E86.0 Dehydration; E11.65 Type 2 diabetes mellitus with hyperglycemia; Z79.899 Other long term (current) drug therapy; Z90.49 Acquired absence of other specified parts of digestive tract; Z79.4 Long term (current) use of insulin; Z86.16 Personal history of COVID-19; Z88.8 Allergy status to other drugs, medicaments and biological substances
CPT/HCPCS: 36415; 36600; 71275; 71275-26; 80053; 80202; 81001; 82550; 82803; 82947; 83036; 83605; 84484; 85025; 85379; 86140; 86738; 87040; 87070; 87077; 87186; 87205; 87428-QW; 87641; 87899; 93005; 93010; 94640; 94667; 94668; 94760; 94761; 96374; 96375; 99285; 99285-25; A9270-GY; J0456; J0696; J1650; J1815; J1815-GY; J1836; J1885; J2919; J3372; J3490; J7030; J7620-GY; Q9967

== ENCOUNTER 2024-11-13 03:25 | Inpatient (IN) | payer BC, MEDICAID ==
[2024-11-13] MEDS ORDERED: Sodium Chloride 0.9% 10 ML Syringe FLUSH PRN (03:52)
[2024-11-13 04:01] LABS: BASOPHILS ABSOLUTE AUTO 0.1 K/mm3 (0.0-0.2); BASOPHILS PERCENT AUTO 0.3 % (0.0-1.0); HEMATOCRIT 38.8 % (42.0-52.0); HEMOGLOBIN 12.2 gm/dl (14.0-18.0); IMMATURE GRAN ABSOLUTE AUTO 0.71 K/mm3 (0.00-0.05); IMMATURE GRAN PERCENT AUTO 2.1 % (0.0-0.4); LYMPHOCYTES ABSOLUTE AUTO 1.6 K/mm3 (1.0-4.8); LYMPHOCYTES PERCENT AUTO 4.6 % (24.0-44.0); MEAN CORPUSCULAR HEMOGLOBIN 25.5 pg (28.0-32.0); MEAN CORPUSCULAR HGB CONC 31.4 g/dl (32.0-36.0); MEAN PLATELET VOLUME 8.6 fl (9.4-12.4); MONOCYTES ABSOLUTE AUTO 2.9 K/mm3 (0.0-0.8); MONOCYTES PERCENT AUTO 8.4 % (0.0-8.0); NEUTROPHILS ABSOLUTE AUTO 28.7 K/mm3 (1.8-7.7); NEUTROPHILS PERCENT AUTO 84.6 % (41.0-71.0); PLATELET COUNT,PLT 528 K/mm3 (150-400); RED BLOOD CELL COUNT 4.79 M/mm3 (4.52-5.90); WHITE BLOOD CELL COUNT,WBC 33.97 K/mm3 (3.9-11.3)
[2024-11-13 04:04] LABS: APPEARANCE,URINE SLT CLOUDY (Clear); BILIRUBIN,URINE 1+ (Negative); COLOR,URINE DARK YELLOW (Yellow); GLUCOSE,URINE TRACE (Negative); KETONES,URINE TRACE (Negative); LEUKOCYTE ESTERASE,URINE NEGATIVE (Negative); NITRITE,URINE NEGATIVE (Negative); OCCULT BLOOD,URINE 2+ (Negative); PROTEIN,URINE 3+ (Negative); UROBILINOGEN,URINE 0.2 (0.2-1.0)
[2024-11-13 04:12] LABS: BICARBONATE,VENOUS 22.4 meq/L (22-26); O2 SATURATION VENOUS 66; PH,VENOUS 7.44 (7.30-7.40)
[2024-11-13 04:13] LABS: BASE EXCESS VENOUS -1.1 (-4.0-2.0)
[2024-11-13 04:22] LABS: BACTERIA,URINE FEW /hpf (FEW); HYALINE CASTS,URINE 0-5 /lpf (0-5); MUCUS,URINE MODERATE /hpf (FEW); WBC,URINE 0-5 /hpf (0-5)
[2024-11-13 04:41] LABS: LACTIC ACID 2.2 mmol/L (0.4-2.0)
[2024-11-13 04:44] LABS: A/G RATIO 0.5 (1-2); ALBUMIN 2.5 g/dl (3.4-5.0); ANION GAP 14.1 (5-15); BILIRUBIN TOTAL 0.9 mg/dL (0.2-1.0); CALCIUM 8.7 mg/dL (8.5-10.1); CREATININE 1.2 mg/dL (0.7-1.3); EST CRCL DRUG DOSING (CG) 82.33 mL/min; MAGNESIUM 1.4 mg/dL (1.8-2.4); POTASSIUM,K 4.1 mEq/L (3.5-5.1)
[2024-11-13] MEDS: Sodium Chloride 0.9% 1,000 ML IV ONE ×3 (04:58→08:31)
[2024-11-13 04:59] LABS: SLIDE REVIEW ABNORMAL SMEAR
[2024-11-13] MEDS: Piperacillin/Tazobactam 4.5 GM in Sodium Chloride 0.9% 100 ML IV ONE (04:59)
[2024-11-13 05:05] LABS: CORONAVIRUS COVID-19 NAA NEGATIVE (NEGATIVE); INFLUENZA A NAA NEGATIVE (NEGATIVE); RESPIRATORY SYNCYTIAL VIR NAA NEGATIVE (NEGATIVE)
[2024-11-13] MEDS: Ketorolac 15 MG/ML SDV IVPUSH ONE ×2 (05:56→22:32)
[2024-11-13] MEDS ORDERED: Sodium Chloride 0.9% 100 ML IV SCH (07:00)
[2024-11-13] MEDS: Iopamidol 755 Mg/ML 100 ML Bottle IVPUSH ONE (07:14)
[2024-11-13] MEDS: VANCOmycin 2 GM/400 ML 2 GM in Premix Bag 1 BAG IV ONE (07:36)
[2024-11-13] MEDS: ARIPiprazole 5 MG Tab PO ONE (12:18)
[2024-11-13] MEDS: metFORMIN 500 MG Tab PO ONE ×2 (12:19→20:50)
[2024-11-13] MEDS: Topiramate 25 MG Tab PO ONE ×2 (12:19→20:50)
[2024-11-13] MEDS: Benztropine 1 MG Tab PO ONE (12:20)
[2024-11-13] MEDS: Gabapentin 600 MG Tab PO ONE ×2 (12:20→20:50)
[2024-11-13] MEDS: Insulin Glargine,Human Rec. Analog 100 Units/ML 3 ML Pen SUBCUT ONE ×2 (12:23→20:51)
[2024-11-13] MEDS: Metoprolol Tartrate 25 MG Tab PO ONE (12:35)
[2024-11-13] MEDS: Fluticasone NASAL Spray 16 GM Bottle NASBOTH ONE (12:35)
[2024-11-13] MEDS: Rosuvastatin 10 MG Tab PO ONE ×2 (12:35→20:50)
[2024-11-13] MEDS: Lisinopril 10 MG Tab PO ONE (12:37)
[2024-11-13] MEDS: Sodium Chloride 0.9% 10 ML Syringe FLUSH ONE (12:37)
[2024-11-13] MEDS: HYDROmorphone 0.5 MG/0.5 ML Syringe IVPUSH ONE (15:24)
[2024-11-13] MEDS: Piperacillin/Tazobactam 4.5 GM in Sodium Chloride 0.9% 100 ML IV SCH (15:27)
[2024-11-13 15:28] LABS: BASOPHILS ABSOLUTE AUTO 0.1 K/mm3 (0.0-0.2); BASOPHILS PERCENT AUTO 0.3 % (0.0-1.0); EOSINOPHILS ABSOLUTE AUTO 0.1 K/mm3 (0.0-0.4); EOSINOPHILS PERCENT AUTO 0.3 % (0.0-6.0); HEMATOCRIT 37.4 % (42.0-52.0); HEMOGLOBIN 11.7 gm/dl (14.0-18.0); IMMATURE GRAN ABSOLUTE AUTO 0.24 K/mm3 (0.00-0.05); LYMPHOCYTES ABSOLUTE AUTO 2.4 K/mm3 (1.0-4.8); LYMPHOCYTES PERCENT AUTO 10.3 % (24.0-44.0); MEAN CORPUSCULAR HEMOGLOBIN 25.5 pg (28.0-32.0); MEAN CORPUSCULAR HGB CONC 31.3 g/dl (32.0-36.0); MEAN CORPUSCULAR VOLUME 81.7 fl (83.0-99.0); MEAN PLATELET VOLUME 8.5 fl (9.4-12.4); MONOCYTES ABSOLUTE AUTO 1.5 K/mm3 (0.0-0.8); MONOCYTES PERCENT AUTO 6.4 % (0.0-8.0); NEUTROPHILS ABSOLUTE AUTO 19.3 K/mm3 (1.8-7.7); NEUTROPHILS PERCENT AUTO 81.7 % (41.0-71.0); PLATELET COUNT,PLT 380 K/mm3 (150-400); RED BLOOD CELL COUNT 4.58 M/mm3 (4.52-5.90); WHITE BLOOD CELL COUNT,WBC 23.58 K/mm3 (3.9-11.3)
[2024-11-13 16:09] LABS: A/G RATIO 0.4 (1-2); ALBUMIN 2.3 g/dl (3.4-5.0); ANION GAP 12.8 (5-15); BILIRUBIN TOTAL 0.6 mg/dL (0.2-1.0); CALCIUM 8.6 mg/dL (8.5-10.1); CREATININE 1.2 mg/dL (0.7-1.3); EST CRCL DRUG DOSING (CG) 82.33 mL/min; POTASSIUM,K 3.8 mEq/L (3.5-5.1)
[2024-11-13] MEDS: VANCOmycin 1.5 GM/300 ML 1.5 GM in Premix Bag 1 BAG IV SCH (17:56)
[2024-11-13] MEDS: Acetaminophen 325 MG Tab PO ONE (20:50)
[2024-11-14] MEDS ORDERED: Acetaminophen 325 MG Tab PO PRN (10:16)
[2024-11-14] MEDS ORDERED: 50% Dextrose in Water 50 ML Syringe IVPUSH PRN (10:20)
[2024-11-14] MEDS ORDERED: ARIPIPRAZOLE 10 MG PO SCH (10:30)
[2024-11-14] MEDS ORDERED: TOPIRAMATE 50 MG PO SCH (10:30)
[2024-11-14] MEDS: Metoprolol Tartrate 25 MG Tab PO SCH (10:57)
[2024-11-14] MEDS: Benztropine 1 MG Tab PO SCH (10:58)
[2024-11-14] MEDS: Topiramate 25 MG Tab PO SCH (10:58)
[2024-11-14] MEDS: Rosuvastatin 10 MG Tab PO SCH (10:58)
[2024-11-14] MEDS: ARIPiprazole 10 MG Tab PO SCH (10:58)
[2024-11-14] MEDS: Insulin Lispro 100 Unit/ML 3 ML KwikPen SUBCUT SCH (12:33)
[2024-11-14] MEDS: Piperacillin/Tazobactam 4.5 GM in Sodium Chloride 0.9% 100 ML IV SCH (13:30)
[2024-11-14] MEDS: Cefepime 2 GM Vial IVPUSH SCH (13:58)
[2024-11-14] MEDS: Gabapentin 600 MG Tab PO SCH (14:03)
[2024-11-14] MEDS ORDERED: Naloxone 0.4 MG/ML SDV IVPUSH PRN (15:27)
[2024-11-14] MEDS: oxyCODONE 5 MG Tab PO PRN (15:52)
[2024-11-14] MEDS ORDERED: Piperacillin/Tazobactam 4.5 GM in Sodium Chloride 0.9% 100 ML IV SCH (17:00)
[2024-11-14] MEDS: VANCOmycin 2 GM/400 ML 2 GM in Premix Bag 1 BAG IV SCH (20:46)
[2024-11-15 04:35] LABS: BASOPHILS ABSOLUTE AUTO 0.1 K/mm3 (0.0-0.2); BASOPHILS PERCENT AUTO 0.8 % (0.0-1.0); EOSINOPHILS ABSOLUTE AUTO 0.1 K/mm3 (0.0-0.4); EOSINOPHILS PERCENT AUTO 1.1 % (0.0-6.0); HEMATOCRIT 35.2 % (42.0-52.0); HEMOGLOBIN 10.9 gm/dl (14.0-18.0); IMMATURE GRAN ABSOLUTE AUTO 0.12 K/mm3 (0.00-0.05); LYMPHOCYTES ABSOLUTE AUTO 2.7 K/mm3 (1.0-4.8); LYMPHOCYTES PERCENT AUTO 21.6 % (24.0-44.0); MEAN CORPUSCULAR HEMOGLOBIN 25.5 pg (28.0-32.0); MEAN CORPUSCULAR VOLUME 82.2 fl (83.0-99.0); MEAN PLATELET VOLUME 9.1 fl (9.4-12.4); MONOCYTES ABSOLUTE AUTO 0.9 K/mm3 (0.0-0.8); MONOCYTES PERCENT AUTO 7.6 % (0.0-8.0); NEUTROPHILS ABSOLUTE AUTO 8.4 K/mm3 (1.8-7.7); NEUTROPHILS PERCENT AUTO 67.9 % (41.0-71.0); PLATELET COUNT,PLT 365 K/mm3 (150-400); RED BLOOD CELL COUNT 4.28 M/mm3 (4.52-5.90)
[2024-11-15 04:59] LABS: A/G RATIO 0.4 (1-2); ALBUMIN 2.1 g/dl (3.4-5.0); ANION GAP 12.9 (5-15); BILIRUBIN TOTAL 0.4 mg/dL (0.2-1.0); BUN/CREATININE RATIO 13.8 (14-18); C-REACTIVE PROTEIN 14.56 mg/dL (<0.30); CALCIUM 8.8 mg/dL (8.5-10.1); CREATININE 0.8 mg/dL (0.7-1.3); EST CRCL DRUG DOSING (CG) 123.5 mL/min; POTASSIUM,K 3.9 mEq/L (3.5-5.1)
[2024-11-15] MEDS: Enoxaparin 40 MG/0.4 ML Syringe SUBCUT SCH (08:31)
[2024-11-15] MEDS: Morphine 2 MG/ML SYRINGE IVPUSH PRN (14:37)
[2024-11-15] MEDS: VANCOmycin 1.5 GM/300 ML 1.5 GM in Premix Bag 1 BAG IV SCH (15:44)
[2024-11-15] MEDS: Insulin Lispro 100 Unit/ML 3 ML KwikPen SUBCUT SCH (17:47)
[2024-11-15] MEDS: Insulin Glargine,Human Rec. Analog 100 Units/ML 3 ML Pen SUBCUT SCH (20:47)
[2024-11-16 05:01] LABS: BASOPHILS ABSOLUTE AUTO 0.1 K/mm3 (0.0-0.2); BASOPHILS PERCENT AUTO 1.2 % (0.0-1.0); EOSINOPHILS ABSOLUTE AUTO 0.2 K/mm3 (0.0-0.4); EOSINOPHILS PERCENT AUTO 1.7 % (0.0-6.0); HEMATOCRIT 33.4 % (42.0-52.0); HEMOGLOBIN 10.4 gm/dl (14.0-18.0); IMMATURE GRAN ABSOLUTE AUTO 0.12 K/mm3 (0.00-0.05); IMMATURE GRAN PERCENT AUTO 1.4 % (0.0-0.4); LYMPHOCYTES ABSOLUTE AUTO 2.5 K/mm3 (1.0-4.8); LYMPHOCYTES PERCENT AUTO 28.7 % (24.0-44.0); MEAN CORPUSCULAR HEMOGLOBIN 25.2 pg (28.0-32.0); MEAN CORPUSCULAR HGB CONC 31.1 g/dl (32.0-36.0); MEAN CORPUSCULAR VOLUME 81.1 fl (83.0-99.0); MEAN PLATELET VOLUME 9.2 fl (9.4-12.4); MONOCYTES ABSOLUTE AUTO 0.7 K/mm3 (0.0-0.8); MONOCYTES PERCENT AUTO 7.9 % (0.0-8.0); NEUTROPHILS ABSOLUTE AUTO 5.2 K/mm3 (1.8-7.7); NEUTROPHILS PERCENT AUTO 59.1 % (41.0-71.0); PLATELET COUNT,PLT 371 K/mm3 (150-400); RED BLOOD CELL COUNT 4.12 M/mm3 (4.52-5.90); WHITE BLOOD CELL COUNT,WBC 8.83 K/mm3 (3.9-11.3)
[2024-11-16 05:25] LABS: A/G RATIO 0.4 (1-2); ALBUMIN 2.2 g/dl (3.4-5.0); ANION GAP 12.7 (5-15); BILIRUBIN TOTAL 0.4 mg/dL (0.2-1.0); BUN/CREATININE RATIO 12.9 (14-18); C-REACTIVE PROTEIN 7.48 mg/dL (<0.30); CALCIUM 8.9 mg/dL (8.5-10.1); CREATININE 0.7 mg/dL (0.7-1.3); EST CRCL DRUG DOSING (CG) 141.14 mL/min; POTASSIUM,K 3.7 mEq/L (3.5-5.1)
== END 2024-11-16 13:55 | disposition home or self-care (01) | DRG 871 ==
LOC: JD.ED 03:25 → JD.MS 11-14 10:16
PROVIDERS: ADMIT Family Medicine; ATTEND Family Medicine
DX: A41.9 Sepsis, unspecified organism (principal); J18.9 Pneumonia, unspecified organism; S22.31XA Fracture of one rib, right side, initial encounter for closed fracture; Z68.43 Body mass index [BMI] 50.0-59.9, adult; E87.1 Hypo-osmolality and hyponatremia; E87.20 Acidosis, unspecified; J45.909 Unspecified asthma, uncomplicated; H54.7 Unspecified visual loss; E78.00 Pure hypercholesterolemia, unspecified; I10 Essential (primary) hypertension; E66.9 Obesity, unspecified; F41.9 Anxiety disorder, unspecified; F32.A Depression, unspecified; G43.909 Migraine, unspecified, not intractable, without status migrainosus; E83.42 Hypomagnesemia; E11.65 Type 2 diabetes mellitus with hyperglycemia; E11.40 Type 2 diabetes mellitus with diabetic neuropathy, unspecified; R65.20 Severe sepsis without septic shock; E11.21 Type 2 diabetes mellitus with diabetic nephropathy; W19.XXXA Unspecified fall, initial encounter; F20.9 Schizophrenia, unspecified; Z88.8 Allergy status to other drugs, medicaments and biological substances; Z91.013 Allergy to seafood; Z79.899 Other long term (current) drug therapy; Z79.51 Long term (current) use of inhaled steroids; Z79.4 Long term (current) use of insulin; Z79.84 Long term (current) use of oral hypoglycemic drugs; Z86.16 Personal history of COVID-19; Z87.81 Personal history of (healed) traumatic fracture; Z90.49 Acquired absence of other specified parts of digestive tract
CPT/HCPCS: 0241U; 36415; 71045; 71045-26; 71275; 71275-26; 74177; 74177-26; 80053; 80202; 81001; 82803; 82947; 83605; 83735; 83880; 83930; 85025; 86140; 87040; 87081; 87252; 87641; 93005; 93010; 94761; 97161-GP; 97530-GP; 99284; A9270-GY; J0692; J1650; J1815; J1815-GY; J1885; J2270; J2543; J3372; J7030; Q9967